=== PATIENT | female | born 2000 | race Asian ===

== ENCOUNTER 2025-07-29 21:26 | Emergency (ER) | payer OTHER ==
[~2025-07-29] VITALS: Ht 160 cm; Wt 52.7 kg
--- NOTE | 2025-07-29 21:40 | Physician Documentation ---
History of Present Illness ~ Chief Complaint: Needlestick Stated Complaint: NEEDLE STICK Time Seen by MD: 21:38 HPI Patient presents to the emergency room after being stuck with a needle. Patient was attempting to put some insulin in a patient however accidentally stuck h erself in may have received some insulin. She had denies having stuck the patient before she accidentally stuck herself Review of Systems ROS All review of systems negative except as per HPI Physical Exam Vital Signs: Temperature: 98.1, Heart Rate: 89, Respiratory Rate: 16, BP: 106/67, Pulse Oximetry: 99, Weight: 52.730 Oxygen Flow Rate: 0 Physical Exam General: Patient is awake, alert, oriented x4 in no acute distress and well appearing.~ Head: Normocephalic and atraumatic. Eyes: Conjunctival normal. EOMI. PERRL. ENT: Mucous membranes moist. Neck: Supple, trachea is midline. Chest: Clear to auscultation bilaterally without rales, rhonchi, or wheezes. There is no accessory muscle use or retractions. Cardiac: RRR without murmurs, gallops, or rubs. Extremities: Small pinprick noted on patient's palmar aspect of her left ring finger at the PIP joint Progress Results/Orders Results/Orders Orders - SAM AMES MD Accucheck (07/29/25 ) Accucheck (07/29/25 22:22) Vital Signs 07/29/25 21:29 Temp 98.1 Pulse 89 Resp 16 B/P (MAP) 106/67 Pulse Ox 99 O2 Flow Rate 0 Laboratory Tests Test 07/29/25 21:47 Glucometer 109 H Medical Decision Making Additional information obtaine: N/A Findings Patient presents to the emergency room after needlestick as per HPI. Patient's blood sugars are reassuring and I do not feel patient has any danger of hypoglycemia. No need for prophylactic medications Differential Dx:Considerations: Include: Abrasion, Body Fluid Exposure, Contusion, Infectious disease expos., Laceration, Puncture wound, Other Departure Disposition: 01 HOME / SELF CARE / HOMELESS Impression: Primary Impression: Needlestick injury accident Condition: Stable Discharge Instructions: Needlestick and Sharps Injury Referrals: NO PRIMARY CARE PROVIDER (PCP) Signature Scribe Signature: No scribe Attestation: The note accurately reflects work and decisions made by me.Sam Ames MD 07/29/25 22:26 SAM AMES MD Jul 29, 2025 21:40
[2025-07-29 22:31] VITALS: BP 108/68; PULSE 86; RESP 18; TEMP 98.6; O2SAT 99
== END 2025-07-29 22:32 | disposition home or self-care (01) ==
LOC: ER 21:27
DX: Z77.21 Contact with and (suspected) exposure to potentially hazardous body fluids (principal); W46.0XXA Contact with hypodermic needle, initial encounter; Y93.89 Activity, other specified; Y92.89 Other specified places as the place of occurrence of the external cause; Y99.0 Civilian activity done for income or pay; Z79.4 Long term (current) use of insulin
CPT/HCPCS: 82948; 99282